=== PATIENT | female | born 1945 | race Caucasian/White ===

== ENCOUNTER → 2024-08-18 12:50 | Outpatient (REF) | payer MEDICARE, OTHER, SELFPAY | LOC: RCS 12:50 | PROVIDERS: ATTENDING PHYSICIAN Internal Medicine Cardiovascular Disease; FAMILY PHYSICIAN Internal Medicine Geriatric Medicine | DX: I50.9 Heart failure, unspecified (principal) | CPT/HCPCS: 93306 ==